=== PATIENT | male | born 1965 | race Caucasian/White ===

== ENCOUNTER 2017-10-18 14:55 | Emergency (ER) | payer BC ==
[~2017-10-18] VITALS: Ht 175.3 cm; Wt 108.9 kg
--- NOTE | 2017-10-18 16:00 | RAD ---
INDICATION: Pain after fall today, unable to bear weight. TECHNIQUE: Left knee series contains 4 images. No comparison is available. FINDINGS: There is minimal patellofemoral spurring. There is no fracture or dislocation. There is no joint effusion. IMPRESSION: Negative for fracture. Electronically signed by: Jason Phelan MD (10/18/2017 3:57 PM) [id number]
[2017-10-18] MEDS ORDERED: METH4TAB2 PO (16:29)
--- NOTE | 2017-10-18 16:29 | PHYS DOC ---
Adult General Chief Complaint Chief Complaint: LOWER EXT PAIN HPI HPI 51-year-old male patient complaining of left knee pain for couple weeks and was seen by his primary care physician yesterday and prescription for Naprosyn was given. Patient states he was climbing sister today and felt a pop in his left knee with increasing his pain. Patient denies focal neurodeficit and other injuries. Patient rated his pain 6/10. Review of Systems Review of Systems Constitutional: Denies fever or chills [] Eyes: Denies change in visual acuity, redness, or eye pain [] HENT: Denies nasal congestion or sore throat [] Respiratory: Denies cough or shortness of breath [] Cardiovascular: No additional information not addressed in HPI [] GI: Denies abdominal pain, nausea, vomiting, bloody stools or diarrhea [] : Denies dysuria or hematuria [] Musculoskeletal: Denies back pain , reports joint pain [] Integument: Denies rash or skin lesions [] Neurologic: Denies headache, focal weakness or sensory changes [] Endocrine: Denies polyuria or polydipsia [] All other systems were reviewed and found to be within normal limits, except as documented in this note. Allergies Allergies Allergies Coded Allergies Type Severity Reaction Last Updated Verified No Known Drug Allergies 10/18/17 No Physical Exam Physical Exam Constitutional: Well developed, well nourished, no acute distress, non-toxic appearance. [] HENT: Normocephalic, atraumatic Eyes: PERRLA, EOMI, conjunctiva normal, no discharge. [] Neck: Normal range of motion, no tenderness, supple, no stridor. [] Cardiovascular:Heart rate regular rhythm, no murmur [] Lungs & Thorax: Bilateral breath sounds clear to auscultation [] Extremities: Left knee without deformity or sign of injury, mild joint effusion with painful range of motion without neurovascular deficit Neurologic: Alert and oriented X 3, normal motor function, normal sensory function, no focal deficits noted. [] Psychologic: Affect normal, judgement normal, mood normal. [] EKG EKG [] Radiology/Procedures Radiology/Procedures [] [address] [address] IMAGING REPORT Signed PATIENT: VILMA PATEL ACCOUNT: [id number] : 1965 LOCATION: ER AGE: 51 SEX: M EXAM STATUS: REG ER ORD. PHYSICIAN: SVETA GONZALES MD REASON: left knee pain PROCEDURE: KNEE LEFT 4V INDICATION: Pain after fall today, unable to bear weight. TECHNIQUE: Left knee series contains 4 images. No comparison is available. FINDINGS: There is minimal patellofemoral spurring. There is no fracture or dislocation. There is no joint effusion. IMPRESSION: Negative for fracture. Electronically signed by: Jason Phelan MD (10/18/2017 3:57 PM) [id number] DICTATED AND SIGNED BY: JASON PHELAN MD DATE: 10/18/17 1556 CC: SVETA GONZALES MD; [facility] ~ Course & Med Decision Making Course & Med Decision Making Pertinent Imaging studies reviewed. (See chart for details) discharge: I've spoken with the patient and/or caregivers. I've explained the patient's condition, diagnosis and treatment plan based on information available to me at this time. I've answered the patient's and/or caregivers questions and addressed any concerns. The patient and/or caregivers have a good understanding the patient's diagnosis, condition and treatment plan as can be expected at this point. Vital signs have been stabilized. The patient's condition is stable for discharge from the emergency department. The patient will pursue further outpatient evaluation with her primary care provider or other designated consulting physician as outlined in the discharge instructions. Patient and/or caregivers are agreeable to this plan of care and follow-up instructions have been explained in detail. The patient and/or caregivers have received these instructions in written format and expressed understanding of these discharge instructions. The patient and her caregivers are aware that if any significant change in condition or worsening of symptoms should prompt him to immediately return to this of the closest emergency department. If an emergent department is not readily available I would encourage him to call 911. [] Dragon Disclaimer Dragon Disclaimer This electronic medical record was generated, in whole or in part, using a voice recognition dictation system. Departure Departure: Impression: Primary Impression: Left knee DJD Additional Impression: Left knee injury Disposition: HOME, SELF-CARE (At 1627) Condition: STABLE Referrals: [facility] (PCP) Patient Instructions: Arthritis, Degenerative-Brief Additional Instructions: Continue home medication Use crutches Follow-up with your primary care physician in 3-5 days Return to ER if not getting better Scripts Methylprednisolone (MEDROL) 4 Mg Tab.ds.pk 1 PKG PO UD, #1 PKG Prov: SVETA GONZALES MD 10/18/17 Problem Qualifiers SVETA GONZALES MD Oct 18, 2017 16:29
[2017-10-18 16:40] VITALS: BP 141/80
== END 2017-10-18 16:40 | disposition home or self-care (01) ==
LOC: ER 14:55
DX: S89.92XA Unspecified injury of left lower leg, initial encounter (principal); M17.12 Unilateral primary osteoarthritis, left knee; X50.9XXA Other and unspecified overexertion or strenuous movements or postures, initial encounter; Y93.39 Activity, other involving climbing, rappelling and jumping off; Y99.8 Other external cause status; Y92.89 Other specified places as the place of occurrence of the external cause
CPT/HCPCS: 73564; 99284